=== PATIENT | female | born 1990 | race Caucasian/White ===

== ENCOUNTER 2019-04-01 07:03 | Emergency (ER) | payer OTHER ==
[~2019-04-01] VITALS: Ht 170.2 cm; Wt 73.0 kg
[2019-04-01] MEDS ORDERED: IBUPROFEN 600MG TABLET PO ONE (08:00)
[2019-04-01] MEDS ORDERED: METHOCARBAMOL 500MG TABLET PO ONE (08:00)
[2019-04-01] MEDS ORDERED: ACETAMINOPHEN 325MG TABLET PO ONE (09:30)
[2019-04-01 10:04] VITALS: BP 120/69
== END 2019-04-01 10:04 | disposition home or self-care (01) ==
LOC: ER 07:29
DX: S16.1XXA Strain of muscle, fascia and tendon at neck level, initial encounter (principal); R51 Headache; K58.9 Irritable bowel syndrome, unspecified; V43.52XA Car driver injured in collision with other type car in traffic accident, initial encounter; Y93.89 Activity, other specified; Y92.488 Other paved roadways as the place of occurrence of the external cause
CPT/HCPCS: 99284